=== PATIENT | female | born 1975 | race Two or more races ===

== ENCOUNTER 2020-05-17 09:21 | Outpatient (CLI) | payer BC ==
[2020-05-17] MEDS ORDERED: ETHYL CHLORIDE SPRAY 1 EA BOTTLE TP ONE (11:27)
[2020-05-17] MEDS ORDERED: BUPIVACAINE 0.5 % PF 150 MG/30 ML VIAL IJ ONE (11:30)
[2020-05-17] MEDS ORDERED: TRIAMCINOLONE ACETONIDE SUSP 40 MG/ML 1 ML IJ ONE (11:30)
[2020-05-17] MEDS ORDERED: LIDOCAINE HCL/PF 1% 30 ML VIAL IJ ONE (11:30)
== END 2020-05-17 23:59 | disposition home or self-care (01) ==
LOC: WOU 09:21
PROVIDERS: ATTEND Podiatrist Foot & Ankle Surgery
DX: M71.572 Other bursitis, not elsewhere classified, left ankle and foot (principal); M79.672 Pain in left foot; I10 Essential (primary) hypertension
CPT/HCPCS: 20600; J3490 ×2

== ENCOUNTER 2020-05-24 08:00 | Outpatient (CLI) | payer BC | END 2020-05-24 23:59 | disposition home or self-care (01) | LOC: WOU 08:00 | PROVIDERS: ATTEND Podiatrist Foot & Ankle Surgery | DX: M71.572 Other bursitis, not elsewhere classified, left ankle and foot (principal); M79.672 Pain in left foot | CPT/HCPCS: G0463 ==

== ENCOUNTER 2020-07-19 08:00 | Outpatient (CLI) | payer BC ==
[2020-07-19] MEDS ORDERED: DEXAMETHASONE SOD PHOSPHATE 4 MG/ML VIAL IJ ONE (08:30)
[2020-07-19] MEDS ORDERED: ETHYL CHLORIDE SPRAY 1 EA BOTTLE TP ONE (08:30)
== END 2020-07-19 23:59 | disposition home or self-care (01) ==
LOC: WOU 08:00
PROVIDERS: ATTEND Podiatrist Foot & Ankle Surgery
DX: M71.572 Other bursitis, not elsewhere classified, left ankle and foot (principal); G57.62 Lesion of plantar nerve, left lower limb; M79.672 Pain in left foot
CPT/HCPCS: 20600; J1100

== ENCOUNTER 2020-07-25 12:00 | Outpatient (CLI) | payer BC | END 2020-07-25 23:59 | disposition home or self-care (01) | LOC: MRI 12:00 | PROVIDERS: ATTEND Podiatrist Foot & Ankle Surgery | DX: M19.072 Primary osteoarthritis, left ankle and foot (principal) | CPT/HCPCS: 73718-TC ==

== ENCOUNTER 2020-08-30 08:00 | Outpatient (CLI) | payer BC ==
[2020-08-30] MEDS ORDERED: ETHYL CHLORIDE SPRAY 1 EA BOTTLE TP ONE (08:01)
[2020-08-30] MEDS ORDERED: TRIAMCINOLONE ACETONIDE SUSP 40 MG/ML VIAL IM ONE (08:01)
[2020-08-30] MEDS ORDERED: BUPIVACAINE 0.5 % PF 150 MG/30 ML VIAL IJ ONE (08:01)
== END 2020-08-30 23:59 | disposition home or self-care (01) ==
LOC: WOU 08:00
PROVIDERS: ATTEND Podiatrist Foot & Ankle Surgery
DX: G57.62 Lesion of plantar nerve, left lower limb (principal); M71.572 Other bursitis, not elsewhere classified, left ankle and foot; M79.672 Pain in left foot
CPT/HCPCS: 20600; J3301; J3490

== ENCOUNTER 2020-09-23 08:25 | Outpatient (CLI) | payer BC ==
[2020-09-23] MEDS ORDERED: TRIAMCINOLONE ACETONIDE SUSP 40 MG/ML VIAL IM ONE (09:00)
[2020-09-23] MEDS ORDERED: ETHYL CHLORIDE SPRAY 1 EA BOTTLE TP ONE (09:00)
[2020-09-23] MEDS ORDERED: LIDOCAINE 1% INJ 50 ML MDV IJ ONE (09:00)
== END 2020-09-23 23:59 | disposition home or self-care (01) ==
LOC: WOU 08:25
PROVIDERS: ATTEND Podiatrist Foot & Ankle Surgery
DX: G57.62 Lesion of plantar nerve, left lower limb (principal); M71.572 Other bursitis, not elsewhere classified, left ankle and foot; M79.672 Pain in left foot
CPT/HCPCS: 64455; J3301; J3490; A6207